=== PATIENT | female | born 1965 | race Caucasian/White ===

== ENCOUNTER → 2020-10-29 | Outpatient (CLI) | payer OTHER ==
--- NOTE | 2020-10-30 13:35 | MM ---
Reason for exam: screening (asymptomatic). Last mammogram was performed 4 years and 3 months ago. History: Patient had first child at age 33. Took hormonal contraceptives for 10 years. Physical Findings: A clinical breast exam by your physician is recommended on an annual basis and results should be correlated with mammographic findings. MG 3D Screening Mammo W/Cad Bilateral CC and MLO view(s) were taken. Prior study comparison: July 14, 2016, bilateral MG work up mamm w CAD BILAT. June 29, 2016, bilateral MG 3d screening mammo w/cad. The breast tissue is heterogeneously dense. This may lower the sensitivity of mammography. There are benign appearing round calcifications bilaterally. Grouped indeterminate calcifications middle depth left breast 3cm in length on CC 25/46 and MLO 31/47. This finding is changed and increased in the number of calcifcations when compared with previous exams. ASSESSMENT: Incomplete: need additional imaging evaluation, BI-RAD 0 RECOMMENDATION: Special view mammogram of the left breast. [facility] will attempt to contact patient to return for supplemental views.
== END | disposition home or self-care (01) ==
LOC: RADMAMWWP 13:09
PROVIDERS: ATTEND Family Medicine
DX: Z12.31 Encounter for screening mammogram for malignant neoplasm of breast (principal)
CPT/HCPCS: 77063; 77067

== ENCOUNTER → 2020-11-11 | Outpatient (CLI) | payer OTHER ==
--- NOTE | 2020-11-11 15:03 | MM ---
Reason for exam: additional evaluation requested from abnormal screening. Last mammogram was performed less than 1 month ago. History: Patient had first child at age 33. Took hormonal contraceptives for 10 years. Physical Findings: Nurse did not find any significant physical abnormalities on exam. MG 3D Work Up W/Cad LT CC with magnification, MLO with magnification, and ML view(s) were taken of the left breast. Prior study comparison: October 29, 2020, bilateral MG 3d screening mammo w/cad. July 14, 2016, bilateral MG work up mamm w CAD BILAT. The breast tissue is heterogeneously dense. This may lower the sensitivity of mammography. Finding: There are increasing indetermiante microcalcifications in the left breast. Increase in number of calcifications since October 29, 2020 and July 14, 2016. These results were verbally communicated with the patient and result sheet given to the patient on 11/11/20. ASSESSMENT: Suspicious, BI-RAD 4 RECOMMENDATION: Stereotactic core biopsy of the left breast. Called Dr. Witt's office with mammographic findings and has scheduled an appointment for the patient for 12/18/20 at 1:[address] Rodriguez. Biopsy scheduled for 12/25/20 at 8:00. PRELIMINARY REPORT CALLED AND FAXED TO DR. RODRIGUEZ ON 11/11/20.
== END | disposition home or self-care (01) ==
LOC: RADMAMWWP 13:38
PROVIDERS: ATTEND Family Medicine
DX: R92.8 Other abnormal and inconclusive findings on diagnostic imaging of breast (principal)
CPT/HCPCS: 77061; 77065

== ENCOUNTER → 2020-12-18 | Outpatient (CLI) | payer OTHER ==
[2020-12-18 13:21] VITALS: BP 120/75; PULSE 79; RESP 18; TEMP 98.4
--- NOTE | 2020-12-18 13:47 | P.GSHP ---
History of Present Illness H&P Date: 12/18/20 Chief Complaint: abnormal left breast mammogram Dania is a 55 year old white female seen in consultation for DR. Derick Agrawal regarding increaseing microcalcifications in the left breast. She had a bilateral mammogram and 2420 in which increasing calcifications were noted in the left breast. A diagnostic left breast mammogram was then performed on which again revealed increasing indeterminant microcalcifications in the left breast. She was recommended to undergo a stereotactic core biopsy of this area. She does not feel any lumps masses or nodules in either breast. She is not complaining of any nipple discharge or skin changes. She has no history of recent, infection in the breast. She has not had any prior surgery to the breast. Caffeine:6 cups/day Nicotine: 2 packs per week, since chocolate: none Family history: none Hormonal History: menarche: 14 [id number], breast fed: yes, first at 33 menopause: last period 2 months ago BCP: DEPO shot 8 years BCP: 2 years Surgical History: conization Medical History: none Social History: smoke: 2 packs per week since 17 Alcohol: Weekly 4 drinks Drugs: Negative - Constitutional Constitutional: Reports sweats - EENT Eyes: denies blurred vision, denies pain Ears: deny: decreased hearing, tinnitus Ears, nose, mouth and throat: Denies headache, Denies sore throat - Breasts Breasts: bilateral: as per HPI - Cardiovascular Cardiovascular: Denies chest pain, Denies shortness of breath - Respiratory Respiratory: Denies cough, Denies 7 - Gastrointestinal Gastrointestinal: Denies abdominal pain, Denies diarrhea, Denies nausea, Denies vomiting - Genitourinary (Female) Genitourinary: Denies dysuria, Denies hematuria - Menstruation Comment: perimenopausal - Musculoskeletal Musculoskeletal: Denies myalgias - Integumentary Integumentary: Denies pruritus, Denies rash - Neurological Neurological: Denies numbness, Denies weakness - Psychiatric Psychiatric: Denies anxiety, Denies depression - Endocrine Endocrine: Denies fatigue, Denies weight change - Hematologic/Lymphatic Comment: none - Allergic/Immunologic Allergic/Immunologic: Reports as per HPI Past Medical History History of Any Multi-Drug Resistant Organisms: None Reported Smoking Status: Current some day smoker Medications and Allergies Home Medications Medication Instructions Recorded Confirmed Type No Known Home Medications 12/18/20 12/18/20 History Allergies Allergy/AdvReac Type Severity Reaction Status Date / Time No Known Allergies Allergy Verified 12/18/20 13:17 Surgical - Exam Vital Signs Temp Pulse Resp BP Pulse Ox 98.4 F 79 18 120/75 98 12/18/20 13:18 12/18/20 13:18 12/18/20 13:18 12/18/20 13:18 12/18/20 13:18 BMI 21.6 - General well developed, well nourished, no distress - Eyes normal ocular movement - ENT normal pinna, no hearing loss - Neck no masses, trachea midline - Respiratory normal expansion, normal respiratory effort, clear to auscultation - Cardiovascular Rhythm: regular Heart Sounds: normal: S1, S2 - Abdomen Abdomen: soft - Integumentary normal turgor - Musculoskeletal normal gait - Psychiatric oriented to time, oriented to person, oriented to place, speech is normal, memory intact Breast exam: BRA: 34D inspection: bilateral grade 2/3 ptosis Palpation: Right breast: Multi-positional exam fibrocystic changes, no dominant masses or nodules of concern Right axilla: No adenopathy of concern Left breast: Multiple positional exam fiber cystic changes, no dominant masses or nodules of concern Left axilla: No adenopathy of concern Results Mammogram results reviewed Assessment and Plan Assessment: Impression: 1. New increase in microcalcifications left breast 2. Fibrocystic breast changes 3. Perimenopausal 4. Nicotine dependence Plan: 1. Stereotactic core biopsy left breast 2. discussed lifestyle modification including stopping smoking and decreasing caffeine intake 3. Patient most likely perimenopausal she can discuss this with her primary care doctor CC: Dr. Miryam Stack Risk and benefits of the procedure discussed with the patient. She understands and wishes to proceed. Alternatives such as watchful waiting open biopsy were not recommended. Encounter 30 minutes, time spent in physical examination, reviewing medical records, and counselling.
== END ==
LOC: WWCWWP 12:48
PROVIDERS: ATTEND Surgery
DX: N60.12 Diffuse cystic mastopathy of left breast (principal); N60.11 Diffuse cystic mastopathy of right breast; F17.200 Nicotine dependence, unspecified, uncomplicated; Z78.0 Asymptomatic menopausal state

== ENCOUNTER → 2020-12-25 | Day surgery (SDC) | payer OTHER ==
[2020-12-25 07:32] VITALS: RESP 16
--- NOTE | 2020-12-25 09:01 | P.PCN ---
Date of Procedure: 12/25/20 Preoperative Diagnosis: Microcalcifications of concern in the left breast/2 areas Postoperative Diagnosis: Same Procedure(s) Performed: Stereotactic core biopsy 2 areas of concern in left breast Anesthesia: local Surgeon: María Rodriguez Estimated Blood Loss (ml): 2 Pathology: other (Breast tissue anterior and posterior sites left breastAnterior psych: Small number of microcalcifications noted would reevaluate when pathology results become availablePosterior; calcifications of concern clearly sampled) Condition: stable Disposition: same day Indications for Procedure: Microcalcifications of concern left breast 2 areas Operative Findings: Fibrofatty breast tissue/ Anterior site: Microcalcifications of concern small lumbar noted and specimen correlate with pathology Posterior psych: Microcalcifications of concern clearly in specimen Description of Procedure: The patient is a 55-year-old white female who on radiographic evaluation of the breast was noted to have microcalcifications of concern in the left breast. 2 areas were recommended for stereotactic core biopsy evaluation. Risks and benefits of the procedure were discussed with the patient and she wished to proceed. The patient was brought to stereotactic core biopsy room. She was positioned prone on the stereotactic core biopsy table. A canvass manager film was obtained. The anterior calcifications of concern were identified. These were targeted. The b reast was prepped using Betadine. 10 mL of 1% lidocaine was used to anesthetize the area of concern. A 9-gauge vacuum-assisted core rotating biopsy needle was driven to the correct coordinates. A prefire film was obtained. This was noted to be in the correct location. The needle was fired. A post fire film was obtained and the needle was noted to be in the correct location. 13 specimens were obtained and the specimen was radiographed. There is a question as to whether the calcifications had been adequately sampled and additional specimens at 7:00 and 10:00 were obtained. Radiograph of the additional specimens did reveal additional microcalcifications. This was felt to be adequately sampled as per radiology and a secure ancelmo top fish hatchery supervisor was placed. Following this targeting was performed of the posterior calcifications. A canvass manager film was obtained. The posterior calcifications were identified and targeted. The breast was prepped using Betadine. 15 mL of 1% lidocaine was used to anesthetize the area of concern. The needle was driven to the correct coordinates. Prefire film was obtained. The needle was noted to be in the correct location. The needle was fired and the posterior film was obtained which again revealed the needle to be in the correct location. Eight core specimens were obtained. Radiograph of the specimens revealed the microcalcifications of concern. A tri-ancelmo bowtie clip was placed. The patient tolerated the procedure in stable condition. She will follow-up with Dr. Jimenez. The specimen is sent to pathology.
[2020-12-25 09:18] VITALS: BP 103/71; PULSE 76; TEMP 98.5
--- NOTE | 2020-12-25 15:32 | MM ---
EXAMINATION TYPE: MG stereo VAD BX LT, MG stereo VAD BX addl LT DATE OF EXAM: 12/25/2020 COMPARISON: 10/29/2020, 11/11/2020 CLINICAL HISTORY: 55-year-old female are 92.8, referred for stereotactic core needle biopsy of left breast microcalcifications. TECHNIQUE: Stereotactic guided core biopsy 2 sites in the left breast. FINDINGS: The procedure of stereotactic guided core biopsy was explained to the patient. Benefits, alternatives, and risks were discussed. An informed consent was then obtained. [facility] was chosen. Shortness pathway was CC from above approach. I performed the localization, then surgeon, Dr. Tony Spann performed the remainder of the procedure. SITE 1, Anterior, A vacuum assisted biopsy gun was used to obtain multiple core samples. Minimal calcifications are identified in the specimen x-ray. Additional sampling was performed and yielded only a few more calcifications. SITE 2, Posterior, A vacuum assisted biopsy gun was used to obtain multiple core samples. Multiple calcifications within the specimen mammogram. The patient tolerated the procedure well without any immediate complication. The patient was kept in the radiology department for short stay after the procedure and then discharged home in stable condition. Targeted calcifications are identified in specimen mammogram. Post biopsy mammogram shows both clips to appear in satisfactory position relative to the targeted area of concern on the preprocedure images. IMPRESSION: SUCCESSFUL, UNCOMPLICATED STEREOTACTIC GUIDED CORE TO SITE BIOPSY OF CALCIFICATIONS IN THE SUPERIOR LEFT BREAST. FULL PATHOLOGY RESULTS TO FOLLOW. RECOMMENDATION: 1. Await pathology results. 2. If benign results, six-month follow-up diagnostic left breast mammogram will be recommended. Only a few calcifications were present on the specimen x-ray from the anterior biopsy site but the sampling was felt to be termite control representative. Pathology Results: Benign A. LEFT BREAST, ANTERIOR, CORE BIOPSY: Stromal fibrosis with focal fibrocystic change, columnar cell change, focal microcalcification and focal usual ductal hyperplasia. Negative for in situ or invasive malignancy. B. LEFT BREAST, POSTERIOR, CORE BIOPSY: Stromal fibrosis with focal fibrocystic change, columnar cell change, focal microcalcification and focal sclerosing adenosis. Negative for in situ or invasive carcinoma. Recommendation Follow up mammogram of the left breast in 6 months. PEDRITO
== END ==
LOC: RADMAMWWP 07:21
PROVIDERS: ATTEND Surgery
DX: N60.12 Diffuse cystic mastopathy of left breast (principal); N60.22 Fibroadenosis of left breast; R92.0 Mammographic microcalcification found on diagnostic imaging of breast
CPT/HCPCS: 88305; 19081; 19082; A4648; J2001

== ENCOUNTER → 2021-01-08 | Outpatient (CLI) | payer OTHER ==
--- NOTE | 2021-01-08 11:05 | P.PN ---
Subjective Progress Note Date: 01/08/21 Principal diagnosis: Fibrocystic breast changes Dania is a 55 year old white female seen in consultation for DR. Derick Agrawal regarding increaseing microcalcifications in the left breast. She had a bilateral mammogram on 2420 in which increasing calcifications were noted in the left breast. A diagnostic left breast mammogram was then performed on which again revealed increasing indeterminant microcalcifications in the left breast. She was recommended to undergo a stereotactic core biopsy of this area. She did not feel any lumps masses or nodules in either breast. She was not complaining of any nipple discharge or skin changes. She has no history of recent, infection in the breast. She has not had any prior surgery to the breast. She underwent a stereotactic core biopsy of 2 sites in the left breast and 4220. Both sites were benign showing fibrocystic changes with some microcalcifications. They were felt to be benign specific. She tolerated the procedure without difficulty. And his doing well. Caffeine:6 cups/day Nicotine: 2 packs per week, since chocolate: none Family history: none Hormonal History: menarche: 14 [id number], breast fed: yes, first at 33 menopause: last period 2 months ago BCP: DEPO shot 8 years BCP: 2 years Surgical History: conization Medical History: none Social History: smoke: 2 packs per week since 17 Alcohol: Weekly 4 drinks Drugs: Negative - Constitutional Constitutional: Reports sweats - EENT Eyes: denies blurred vision, denies pain Ears: deny: decreased hearing, tinnitus Ears, nose, mouth and throat: Denies headache, Denies sore throat - Breasts Breasts: bilateral: as per HPI - Cardiovascular Cardiovascular: Denies chest pain, Denies shortness of breath - Respiratory Respiratory: Denies cough, Denies 7 - Gastrointestinal Gastrointestinal: Denies abdominal pain, Denies diarrhea, Denies nausea, Denies vomiting - Genitourinary (Female) Genitourinary: Denies dysuria, Denies hematuria - Menstruation Comment: perimenopausal - Musculoskeletal Musculoskeletal: Denies myalgias - Integumentary Integumentary: Denies pruritus, Denies rash - Neurological Neurological: Denies numbness, Denies weakness - Psychiatric Psychiatric: Denies anxiety, Denies depression - Endocrine Endocrine: Denies fatigue, Denies weight change - Hematologic/Lymphatic Comment: none - Allergic/Immunologic Allergic/Immunologic: Reports as per HPI Objective - Constitutional General appearance: Present: average body habitus - EENT ENT: Present: hearing grossly normal - Neck Neck: Present: normal ROM - Respiratory Respiratory: bilateral: CTA - Cardiovascular Rhythm: regular Heart sounds: normal: S1, S2 - Integumentary Integumentary Comment(s): biopsy site clean and dry no Evidence of infection or hematoma Integumentary: Present: normal turgor - Musculoskeletal Musculoskeletal: Present: gait normal - Psychiatric Psychiatric: Present: A&O x's 3, appropriate affect, intact judgment & insight Assessment and Plan Assessment: Impression: 1. Patient status post atactic core biopsy of 2 areas of concern in the left breast/both were benign fibrocystic change and felt to be benign specific 2. Fibrocystic breast changes Plan: 1. Left breast mammogram in 6 months with physician exam at that time 2. Patient will call sooner if she has any questions or concerns 3. Patient has some slight nodularity near the area of biopsy. To be normal postprocedure changes CC: Dr. Witt
[2021-01-08 11:11] VITALS: BP 128/88; PULSE 70; RESP 16; TEMP 98
== END ==
LOC: WWCWWP 10:48
PROVIDERS: ATTEND Surgery
DX: N60.12 Diffuse cystic mastopathy of left breast (principal); F17.210 Nicotine dependence, cigarettes, uncomplicated

== ENCOUNTER → 2021-06-30 | Outpatient (CLI) | payer OTHER ==
--- NOTE | 2021-06-30 14:49 | MM ---
Reason for exam: follow-up at short interval from prior study. Last mammogram was performed 8 months ago. History: Patient had first child at age 33. Benign MG stereo VAD BX addl LT of the left breast, December 25, 2020. Benign MG stereo VAD BX LT of the left breast, December 25, 2020. Took hormonal contraceptives for 10 years. Physical Findings: Nurse did not find any significant physical abnormalities on exam. MG 3D Diag Mammo W/Cad LT CC with magnification, LM with magnification, and LM view(s) were taken of the left breast. Prior study comparison: October 29, 2020, bilateral MG 3d screening mammo w/cad. The breast tissue is heterogeneously dense. This may lower the sensitivity of mammography. Finding: There are better visualized fine segmental calcifications in the upper outer quadrant of the left breast. Finding may have changed since October 29, 2020. These results were verbally communicated with the patient and result sheet given to the patient on 06/30/21. ASSESSMENT: Probably benign, BI-RAD 3 RECOMMENDATION: Follow-up diagnostic mammogram of the left breast in 3 months. (plus magnification views)
== END | disposition home or self-care (01) ==
LOC: RADMAMWWP 12:54
PROVIDERS: ATTEND Surgery
DX: R92.1 Mammographic calcification found on diagnostic imaging of breast (principal)
CPT/HCPCS: 77061; 77065

== ENCOUNTER → 2021-07-08 | Outpatient (CLI) | payer OTHER ==
[2021-07-08 14:03] VITALS: BP 107/67; PULSE 78; RESP 14; TEMP 98.3
--- NOTE | 2021-07-08 14:17 | P.PN ---
Subjective Progress Note Date: 07/08/21 Principal diagnosis: fibrocystic breast changes Fibrocystic breast changes Dania is a 56 year old white female seen in consultation for DR. Derick Agrawal regarding increaseing microcalcifications in the left breast. She had a bilateral mammogram on 2420 in which increasing calcifications were noted in the left breast. A diagnostic left breast mammogram was then performed on which again revealed increasing indeterminant microcalcifications in the left breast. She was recommended to undergo a stereotactic core biopsy of this area. She did not feel any lumps masses or nodules in either breast. She was not complaining of any nipple discharge or skin changes. She had no history of recent, infection in the breast. She had not had any prior surgery to the breast. She underwent a stereotactic core biopsy of 2 sites in the left breast on 4220. Both sites were benign showing fibrocystic changes with some microcalcifications. They were felt to be benign specific. She tolerated the procedure without difficulty. She had a left breast mammogram on 06-30-21 this revealed "better visualized fine segmental calcifications in the upper quadrant of the left breast "the recommendation was repeat left breast mammogram in 3 months with magnification views. The patient does not note any dominant masses or nodules of concern in either breast. Caffeine:6 cups/day Nicotine: 2 packs per week, since chocolate: none Family history: none Hormonal History: menarche: 14 [id number], breast fed: yes, first at 33 menopause: last period 2 months ago BCP: DEPO shot 8 years BCP: 2 years Surgical History: conization Medical History: none Social History: smoke: 2 packs per week since 17 Alcohol: Weekly 4 drinks Drugs: Negative - Constitutional Constitutional: Reports sweats - EENT Eyes: denies blurred vision, denies pain Ears: deny: decreased hearing, tinnitus Ears, nose, mouth and throat: Denies headache, Denies sore throat - Breasts Breasts: bilateral: as per HPI - Cardiovascular Cardiovascular: Denies chest pain, Denies shortness of breath - Respiratory Respiratory: Denies cough - Gastrointestinal Gastrointestinal: Denies abdominal pain, Denies diarrhea, Denies nausea, Denies vomiting - Genitourinary (Female) Genitourinary: Denies dysuria, Denies hematuria - Menstruation Comment: perimenopausal - Musculoskeletal Musculoskeletal: Denies myalgias - Integumentary Integumentary: Denies pruritus, Denies rash - Neurological Neurological: Denies numbness, Denies weakness - Psychiatric Psychiatric: Denies anxiety, Denies depression - Endocrine Endocrine: Denies fatigue, Denies weight change - Hematologic/Lymphatic Comment: none - Allergic/Immunologic Allergic/Immunologic: Reports as per HPI Objective - Vital Signs Vital signs: Vital Signs Temp 98.3 F 07/08/21 13:54 Pulse 78 07/08/21 13:54 Resp 14 07/08/21 13:54 BP 107/67 07/08/21 13:54 Pulse Ox 98 07/08/21 13:54 Intake & Output 07/07/21 07/08/21 07/08/21 18:59 06:59 18:59 Weight 54.885 kg - Exam BMI 21.1 - Constitutional General appearance: Present: cooperative - EENT Eyes: Present: EOMI ENT: Present: hearing grossly normal - Neck Neck: Present: normal ROM - Respiratory Respiratory: bilateral: CTA - Cardiovascular Rhythm: regular Heart sounds: normal: S1, S2 - Gastrointestinal General gastrointestinal: Present: soft - Integumentary Integumentary: Present: normal turgor - Musculoskeletal Musculoskeletal: Present: gait normal - Psychiatric Psychiatric: Present: A&O x's 3, appropriate affect, intact judgment & insight - Additional findings Additional findings: Breast Exam: BRA: 34D inspection: bilateral grade 2/3 ptosis palpation: Right breast: Multi-positional exam fibrocystic changes no dominant masses or nodules of concern Right axilla: No adenopathy of concern Left breast: Multi-positional exam fibrocystic changes no dominant masses or nodules of concern Left axilla: No adenopathy of concern Assessment and Plan Assessment: Impression: 1. Fibrocystic breast changes bilateral Plan: 1. Repeat left breast mammogram in 3 months with magnification views as well, the physician exam at that time 2. Bilateral mammogram in 6 months with physician exam CC: Dr. Witt; Malina Gomez
== END ==
LOC: WWCWWP 13:50
PROVIDERS: ATTEND Surgery
DX: N60.11 Diffuse cystic mastopathy of right breast (principal); N60.12 Diffuse cystic mastopathy of left breast; F17.210 Nicotine dependence, cigarettes, uncomplicated

== ENCOUNTER → 2021-10-13 | Outpatient (CLI) | payer SELFPAY ==
--- NOTE | 2021-10-14 08:50 | MM ---
Reason for exam: follow-up at short interval from prior study. Last mammogram was performed 3 months ago. History: Patient had first child at age 33. Family history of breast cancer in mother at age 76. Benign MG stereo VAD BX addl LT of the left breast, December 25, 2020. Benign MG stereo VAD BX LT of the left breast, December 25, 2020. Took hormonal contraceptives for 10 years. Physical Findings: Nurse did not find any significant physical abnormalities on exam. MG 3D Diag Mammo W/Cad AILYN Bilateral CC and MLO view(s) were taken. LM view(s) were taken of the left breast. Prior study comparison: June 30, 2021, left breast MG 3d diag mammo w/cad LT. November 11, 2020, left breast MG 3d work up w/cad LT. Finding: There are fine, grouped/clustered calcifications in the upper outer quadrant, middle position of the left breast, no increased number, no cluster. Previous mammotome biopsy in the left breast. No significant changes in finding since June 30, 2021 and November 11, 2020. These results were verbally communicated with the patient and result sheet given to the patient on 10/13/21. ASSESSMENT: Benign, BI-RAD 2 RECOMMENDATION: Routine screening mammogram of both breasts in 1 year.
== END | disposition home or self-care (01) ==
LOC: RADMAMWWP 14:08
PROVIDERS: ATTEND Surgery
DX: R92.1 Mammographic calcification found on diagnostic imaging of breast (principal); Z80.3 Family history of malignant neoplasm of breast
CPT/HCPCS: 77062; 77066

== ENCOUNTER → 2021-10-28 | Outpatient (CLI) | payer OTHER ==
[2021-10-28 13:05] VITALS: BP 112/73; PULSE 86; RESP 18; TEMP 98.6
--- NOTE | 2021-10-28 13:32 | P.PN ---
Subjective Progress Note Date: 10/28/21 Principal diagnosis: fibrocystic breast changes Fibrocystic breast changes Dania is a 56 year old white female seen in consultation for DR. Derick Agrawal regarding increaseing microcalcifications in the left breast. She had a bilateral mammogram on 2420 in which increasing calcifications were noted in the left breast. A diagnostic left breast mammogram was then performed on which again revealed increasing indeterminant microcalcifications in the left breast. She was recommended to undergo a stereotactic core biopsy of this area. She did not feel any lumps masses or nodules in either breast. She was not complaining of any nipple discharge or skin changes. She had no history of recent, infection in the breast. She had not had any prior surgery to the breast. She underwent a stereotactic core biopsy of 2 sites in the left breast on 4220. Both sites were benign showing fibrocystic changes with some microcalcifications. They were felt to be benign specific. She tolerated the procedure without difficulty. She had a left breast mammogram on 06-30-21 this revealed "better visualized fine segmental calcifications in the upper quadrant of the left breast "the recommendation was repeat left breast mammogram in 3 months with magnification views. The patient does not note any dominant masses or nodules of concern in either breast. 10-28-21 She underwent a repeat bilateral breast mammogram on 10-13-21. On this mammogram there were not felt to be any increased calcifications. It was felt that this was benign BIRADS 2 and repeat bilateral mammogram in 1 year. She is not complaining of any new lumps masses or nodules of concern in either breast. Caffeine:6 cups/day Nicotine: 2 packs per week, since chocolate: none Family history: none Hormonal History: menarche: 14 [id number], breast fed: yes, first at 33 menopause: last period 2 months ago BCP: DEPO shot 8 years BCP: 2 years Surgical History: conization Medical History: none Social History: smoke: 2 packs per week since 17 Alcohol: Weekly 4 drinks Drugs: Negative - Constitutional Constitutional: Reports sweats - EENT Eyes: denies blurred vision, denies pain Ears: deny: decreased hearing, tinnitus Ears, nose, mouth and throat: Denies headache, Denies sore throat - Breasts Breasts: bilateral: as per HPI - Cardiovascular Cardiovascular: Denies chest pain, Denies shortness of breath - Respiratory Respiratory: Denies cough - Gastrointestinal Gastrointestinal: Denies abdominal pain, Denies diarrhea, Denies nausea, Denies vomiting - Genitourinary (Female) Genitourinary: Denies dysuria, Denies hematuria - Menstruation Comment: perimenopausal - Musculoskeletal Musculoskeletal: Denies myalgias - Integumentary Integumentary: Denies pruritus, Denies rash - Neurological Neurological: Denies numbness, Denies weakness - Psychiatric Psychiatric: Denies anxiety, Denies depression - Endocrine Endocrine: Denies fatigue, Denies weight change - Hematologic/Lymphatic Comment: none - Allergic/Immunologic Allergic/Immunologic: Reports as per HPI Objective - Vital Signs Vital signs: Vital Signs Temp 98.6 F 10/28/21 12:59 Pulse 86 10/28/21 12:59 Resp 18 10/28/21 12:59 BP 112/73 10/28/21 12:59 Pulse Ox Intake & Output 10/27/21 10/28/21 10/28/21 18:59 06:59 18:59 Weight 122 kg - Constitutional General appearance: Present: cooperative - EENT Eyes: Present: EOMI ENT: Present: hearing grossly normal - Neck Neck: Present: normal ROM - Respiratory Respiratory: bilateral: CTA - Cardiovascular Rhythm: regular Heart sounds: normal: S1, S2 - Integumentary Integumentary: Present: normal turgor - Musculoskeletal Musculoskeletal: Present: gait normal - Psychiatric Psychiatric: Present: A&O x's 3, appropriate affect, intact judgment & insight - Additional findings Additional findings: Breast examination: BRA: 34D Inspection: Bilateral grade 2/3 ptosis Palpation: Right breast: Multi-positional exam fibrocystic changes no dominant masses or nodules of concern Right axilla: No adenopathy of concern Left breast: Multi-positional exam fibrocystic changes predominantly masses or nodules of concern Left axilla: No adenopathy of concern Assessment and Plan Assessment: Impression: Fibrocystic breast changes bilateral Recent bilateral mammogram [id number] benign fibroids 2 Plan: Repeat bilateral mammogram in 1 year with physician exam at that time Cc: Dr. Amezcua, Malina Gomez
== END ==
LOC: WWCWWP 12:49
PROVIDERS: ATTEND Surgery
DX: N60.11 Diffuse cystic mastopathy of right breast (principal); N60.12 Diffuse cystic mastopathy of left breast; F17.210 Nicotine dependence, cigarettes, uncomplicated

== ENCOUNTER → 2023-01-05 | Outpatient (CLI) | payer OTHER ==
[2023-01-05 10:04] VITALS: BP 102/68; PULSE 85; RESP 17; TEMP 98.3
--- NOTE | 2023-01-05 10:20 | P.PN ---
Subjective Progress Note Date: 01/05/23 Principal diagnosis: fibrocystic breast changes Fibrocystic breast changes Dania is a 56 year old white female seen in consultation for DR. Derick Agrawal regarding increaseing microcalcifications in the left breast. She had a bilateral mammogram on 2420 in which increasing calcifications were noted in the left breast. A diagnostic left breast mammogram was then performed on which again revealed increasing indeterminant microcalcifications in the left breast. She was recommended to undergo a stereotactic core biopsy of this area. She did not feel any lumps masses or nodules in either breast. She was not complaining of any nipple discharge or skin changes. She had no history of recent, infection in the breast. She had not had any prior surgery to the breast. She underwent a stereotactic core biopsy of 2 sites in the left breast on 4220. Both sites were benign showing fibrocystic changes with some microcalcifications. They were felt to be benign specific. She tolerated the procedure without difficulty. She had a left breast mammogram on 06-30-21 this revealed "better visualized fine segmental calcifications in the upper quadrant of the left breast "the recommendation was repeat left breast mammogram in 3 months with magnification views. The patient does not note any dominant masses or nodules of concern in either breast. 10-28-21 She underwent a repeat bilateral breast mammogram on 10-13-21. On this mammogram there were not felt to be any increased calcifications. It was felt that this was benign BIRADS 2 and repeat bilateral mammogram in 1 year. She is not complaining of any new lumps masses or nodules of concern in either breast. 01-05-23 Dania is a 57 year old white female. The patient on 11-25-22 underwent a bilateral mammogram . This wsa BIRAD 1. She has a lifetime calculated risk of breast cancer of 22.8%. Life time Risk Breast Cancer: 22.8% Stacy Risk Evaluation: 2.8% Caffeine:6 cups/day Nicotine: 2 packs per week, since chocolate: none Family history: none Hormonal History: menarche: 14 [id number], breast fed: yes, first at 33 menopause: last period 2 months ago BCP: DEPO shot 8 years BCP: 2 years Surgical History: conization Medical History: none Social History: smoke: 2 packs per week since 17 Alcohol: Weekly 4 drinks Drugs: Negative - Constitutional Constitutional: Reports sweats - EENT Eyes: denies blurred vision, denies pain Ears: deny: decreased hearing, tinnitus Ears, nose, mouth and throat: Denies headache, Denies sore throat - Breasts Breasts: bilateral: as per HPI - Cardiovascular Cardiovascular: Denies chest pain, Denies shortness of breath - Respiratory Respiratory: Denies cough - Gastrointestinal Gastrointestinal: Denies abdominal pain, Denies diarrhea, Denies nausea, Denies vomiting - Genitourinary (Female) Genitourinary: Denies dysuria, Denies hematuria - Menstruation Comment: perimenopausal - Musculoskeletal Musculoskeletal: Denies myalgias - Integumentary Integumentary: Denies pruritus, Denies rash - Neurological Neurological: Denies numbness, Denies weakness - Psychiatric Psychiatric: Denies anxiety, Denies depression - Endocrine Endocrine: Denies fatigue, Denies weight change - Hematologic/Lymphatic Comment: none - Allergic/Immunologic Allergic/Immunologic: Reports as per HPI Objective - Vital Signs Vital signs: Vital Signs Temp 98.3 F 01/05/23 09:58 Pulse 85 01/05/23 09:58 Resp 17 01/05/23 09:58 BP 102/68 01/05/23 09:58 Pulse Ox 100 01/05/23 09:58 FiO2 Intake & Output 01/04/23 01/05/23 01/05/23 18:59 06:59 18:59 Weight 54.431 kg - Constitutional General appearance: Present: cooperative - EENT Eyes: Present: EOMI ENT: Present: hearing grossly normal - Neck Neck: Present: normal ROM - Respiratory Respiratory: bilateral: CTA - Cardiovascular Rhythm: regular Heart sounds: normal: S1, S2 - Gastrointestinal General gastrointestinal: Present: soft - Integumentary Integumentary: Present: normal turgor - Musculoskeletal Musculoskeletal: Present: gait normal - Psychiatric Psychiatric: Present: A&O x's 3, appropriate affect, intact judgment & insight - Additional findings Additional findings: Breast examination: BRA: 34D Inspection: Bilateral grade 2/3 ptosis Palpation: Right breast: Multi-positional exam fibrocystic changes no dominant masses or nodules of concern Right axilla: No adenopathy of concern Left breast: Multi-positional exam fibrocystic changes predominantly masses or nodules of concern Left axilla: No adenopathy of concern Assessment and Plan Assessment: Impression: high risk breast cancer Fibrocystic breast changes Plan: repeat bilateal mammogram in 1 year consider breast MRI at 6 months secondary to life time risk > 20% for breast cancer we have discussed chemoprevention and at this time she would like to defer CC: Dr. Witt
== END ==
LOC: WWCWWP 09:52
PROVIDERS: ATTEND Surgery
DX: N60.12 Diffuse cystic mastopathy of left breast (principal); N60.11 Diffuse cystic mastopathy of right breast; F17.210 Nicotine dependence, cigarettes, uncomplicated

== ENCOUNTER → 2024-06-05 | Outpatient (CLI) | payer OTHER ==
--- NOTE | 2024-06-05 17:41 | CTL ---
EXAMINATION TYPE: CT Low Dose Lung DATE OF EXAM ORDERED: 06/05/2024 HISTORY: History of tobacco use. 26 pack-year history. Reported quitting smoking 3 months ago. Lung c ancer screening CT DLP: 54.[address] CTDI: 1.5 mGy Automated exposure control for dose reduction was used. SCREENING VISIT: First screening visit COMPARISON: None TECHNIQUE: Low dose computed tomography scan was performed through the chest at 1 mm thick sections a nd reconstructed images in multiple planes at 1 mm and [address] DIAGNOSTIC QUALITY: Satisfactory FINDINGS: Nodules: Diffuse scattered punctate calcified granulomas. No clinically significant pulmonary nodule. LUNGS: COPD: Severity: None Fibrosis: Severity: None Lymph nodes: None Other findings: None RIGHT PLEURAL SPACE: Effusion: None Calcification: None Thickening: None Pneumothorax: None LEFT PLEURAL SPACE: Effusion: None Calcification: None Thickening: None Pneumothorax: None HEART: Heart Size: Normal Coronary Calcification: Small Pericardial Effusion: None OTHER FINDINGS: Upper abdomen: None Bony thorax: None Supraclavicular region: None Other: A few calcifications identified within the left breast. IMPRESSION: No clinically significant pulmonary nodule. Few punctate calcified granulomas. CT LUNG RAD AND CT CHEST RECOMMENDATION: Lung-Rad 2 Benign Appearance or Behavior: Continue annual sc reening with LDCT in 12 months. S Modifier (other clinically significant findings): None
== END | disposition home or self-care (01) ==
LOC: RADCTMAIN 11:04
PROVIDERS: ATTEND Family Medicine
DX: Z12.2 Encounter for screening for malignant neoplasm of respiratory organs (principal); F17.210 Nicotine dependence, cigarettes, uncomplicated; J84.10 Pulmonary fibrosis, unspecified
CPT/HCPCS: 71271

== ENCOUNTER → 2024-06-05 | Outpatient (CLI) | payer OTHER ==
--- NOTE | 2024-06-05 13:31 | BD ---
EXAMINATION TYPE: Axial Bone Density DATE OF EXAM: 06/05/2024 CLINICAL HISTORY: 59 years old Female. ICD-10 CODE: Z78.0 POST MENOPAUSAL WITHOUT HRT Height: 63.5 Weight: 119 FRAX RISK QUESTIONS: Family History (Parent hip fracture): no History of Fracture in Adulthood: no Secondary Osteoporosis: no Current Tobacco Use: no RISK FACTORS HISTORY OF: Surgery to Spine/Hip(right/left)/Wrist (right/left): no MEDICATIONS: Thyroid Medications: no Osteoporosis Medications: no EXAM MEASUREMENTS: Bone mineral densitometry was performed using the [employer]. Bone mineral density as measured about the Lumbar spine is: ----- L1-L4(G/cm2): 1.324 T Score Values are as follows: ----- L1: 0.2 ----- L2: -0.1 ----- L3: 1.6 ----- L4: 2.5 ----- L1-L4: 1.2 Z Score Values are as follows: ----- L1: 1.6 ----- L2: 1.3 ----- L3: 2.9 ----- L4: 3.8 ----- L1-L4: 2.5 Bone mineral density baseline Bone mineral density about the R hip (g/cm2): 1.003 Bone mineral density about the L hip (g/cm2): 0.940 T Score values are as follows: -----R Neck: -0.7 -----L Neck: -1.2 -----R Total: 0.0 -----L Total: -0.5 Z Score values are as follows: -----R Neck: 0.6 -----L Neck: 0.2 -----R Total: 1.0 -----L Total: 0.5 Bone mineral density baseline FRAX%s: The graph provided illustrates a 5.9% chance for a major osteoporotic fx and a 0.4% chance fo r the hips probability for fx in 10 years time. IMPRESSION: Normal (Values between +1 and -1 indicate normal bone mass). Consider repeating this study in 5 year s or sooner if there is some new clinical indication. NOTE: T-SCORE=SD OF THE YOUNG ADULT MEAN.
--- NOTE | 2024-06-06 14:24 | MM ---
Reason for Exam: Screening (asymptomatic). Last mammogram was performed 1 year(s) and 6 month(s) ago. Patient History: Menarche at age 14. First Full-Term at age 33. Late child-bearing (after 32). Postmenopausal. Patient used Hormonal Contraceptives for 10 years. 12/25/2020, Benign Core Biopsy on the left side. 12/25/2020, Benign Core Biopsy on the left side. Mother had breast cancer, age 76. Risk Values: Stacy 5 year model risk: 3.9%. NCI Lifetime model risk: 22.0%. Prior Study Comparison: 06/30/2021 Left Diagnostic Mammogram, [facility]. 10/13/2021 Bilateral Diagnostic Mammogram, [facility]. 11/25/2022 Bilateral MG 3D screening mammo w/cad, [facility]. Tissue Density: The breasts are heterogeneously dense, which may obscure small masses. Findings: Analyzed By CAD. There is no suspicious group of microcalcifications or new suspicious mass in either breast. Overall Assessment: Benign, BI-RAD 2 Management: Screening Mammogram of both breasts in 1 year. . Patient should continue monthly self-breast exams. A clinical breast exam by your physician is recommended on an annual basis. This exam should not preclude additional follow-up of suspicious palpable abnormalities. Note on Stacy scores and lifetime risk: 1. A Stacy score greater than 3% is considered moderate risk. If this is the case, consider specialist referral to assess eligibility for a risk reducing agent. 2. If overall lifetime risk for the development of breast cancer is 20% or higher, the patient may qualify for future screening with alternating mammogram and breast MRI. Electronically signed and approved by: Edvin Tran M.D. Radiologis
== END | disposition home or self-care (01) ==
LOC: RADMAMWWP 11:29
PROVIDERS: ATTEND Family Medicine
DX: Z12.31 Encounter for screening mammogram for malignant neoplasm of breast (principal); Z78.0 Asymptomatic menopausal state; Z80.3 Family history of malignant neoplasm of breast; R92.333 Mammographic heterogeneous density, bilateral breasts; M85.89 Other specified disorders of bone density and structure, multiple sites
CPT/HCPCS: 77063; 77067; 77080